=== PATIENT | female | born 2000 | race Caucasian/White ===

== ENCOUNTER 2020-10-09 12:15 | Emergency (ER) | payer OTHER ==
[~2020-10-09] VITALS: Ht 162.6 cm; Wt 54.4 kg
--- NOTE | 2020-10-09 12:25 | NUR ---
TO ER BED 3, C/O RIGHT LOWER ABDOMINAL PAIN SINCE TUESDAY, AWAITING MD JEFFERSON
--- NOTE | 2020-10-09 12:36 | NUR ---
SEEN BY , AWAITING URINE SAMPLE
--- NOTE | 2020-10-09 12:47 | NUR ---
SALINE LOCK ESTABLISHED, BLOOD DRAWN AND INFORMED LAB
[2020-10-09 12:56] LABS: BASOPHILS # (AUTO) 0.1 K/uL (0.0-0.2); EOSINOPHILS % (AUTO) 5.5 % (0.0-6.0); HEMATOCRIT 40 % (33-45); LYMPHOCYTES # (AUTO) 2.7 K/uL (0.8-4.8); MEAN CORPUSCULAR HGB CONC 35 g/dl (31.0-36.0); MEAN CORPUSCULAR VOLUME 84 fL (82-100); MONOCYTES # (AUTO) 0.4 K/uL (0.1-1.30); MONOCYTES % (AUTO) 6.4 % (2.0-12.0); NEUTROPHILS # (AUTO) 2.4 K/uL (1.8-8.9); NEUTROPHILS % (AUTO) 41.1 % (43.0-81.0); PLATELET COUNT (AUTO) 215 K/uL (150-450); RED BLOOD CELL COUNT(AUTO) 4.77 MIL/uL (4.0-5.2); WHITE BLOOD COUNT (AUTO) 5.8 K/uL (4.3-11.0)
--- NOTE | 2020-10-09 13:05 | NUR ---
US AT BEDSIDE
--- NOTE | 2020-10-09 13:11 | NUR ---
URINE SAMPLE PROVIDED, SENT TO LAB
[2020-10-09 13:12] LABS: ALBUMIN 4.2 g/dL (3.4-5.0); BILIRUBIN,DIRECT 0.1 mg/dL (0.0-0.2); BILIRUBIN,TOTAL 0.5 mg/dL (0.2-1.0); CALCIUM, SERUM 8.7 mg/dL (8.5-10.1); CREATININE 0.9 mg/dL (0.6-1.3); POTASSIUM 3.6 mmol/L (3.5-5.1); TOTAL PROTEIN, SERUM 6.9 g/dL (6.4-8.2)
[2020-10-09 14:10] LABS: BILIRUBIN,URINE Negative (NEGATIVE); COLOR,URINE YELLOW (YELLOW); LEUKOCYTE ESTERASE ,URINE Negative (NEGATIVE); NITRITE, URINE Negative (NEGATIVE); PROTEIN,URINE Negative (NEGATIVE); UGLUCOSE Negative (NEGATIVE); UROBILINOGEN,URINE 0.2 EU/dL (0.2)
[2020-10-09 14:21] VITALS: BP 100/89
[2020-10-09] MEDS ORDERED: IOHEXOL-300 100 ML VIAL IV ONE (14:29)
[2020-10-09] MEDS ORDERED: IV NS 0.9% 250 ML IV ONE (14:29)
--- NOTE | 2020-10-09 14:29 | NUR ---
PT TO CT
[2020-10-09 14:36] LABS: BACTERIA,URINE Few /HPF (None Seen); SQUAMOUS EPITHELIAL CELL,UR Few /HPF (None Seen); WBC,URINE 0-2 /HPF (0-3)
== END 2020-10-09 16:05 | disposition home or self-care (01) ==
LOC: ER 12:21
DX: R10.31 Right lower quadrant pain (principal); R10.11 Right upper quadrant pain; Z88.0 Allergy status to penicillin; Z88.1 Allergy status to other antibiotic agents; Z88.6 Allergy status to analgesic agent
CPT/HCPCS: 36415; 74018; 74177; 76856; 80048; 80076; 81001; 83690; 84702; 85025; 99285; J7050; Q9967